=== PATIENT | female | born 1950 | race Caucasian/White ===

== ENCOUNTER 2019-10-22 06:05 | Day surgery (SDC) | payer OTHER ==
[~2019-10-22] VITALS: Ht 160 cm; Wt 53.1 kg
[~2019-10-22 06:05] MED LIST: DOXYCYCLINE HY200 MG PO; EVISTA60 MG PO; ZOCOR20 MG PO
[2019-10-22 07:50] VITALS: BP 128/63
--- NOTE | 2019-10-23 13:07 | PATH ---
[facility] [address] [address] PATHOLOGY RPT PROCEDURE Name: ROHINI OTTO Room #: DEP [facility] M.R.#: [id number] Admission: 10/22/19 Date of : 50 Discharge: 10/22/19 Report #: [id number] Path Case #: [id number] [facility] Accession Number: [id number] . 01 Material submitted: . canthus - LESION RIGHT MEDIAL CANTHUS. Modifiers: right, medial . 01 Clinical history: . None provided. . 02 Diagnosis: Skin, "right upper eyelid", biopsy: - Seborrheic keratosis with moderate chronic inflammation. (JENNIFER:alexandra; 10/23/2019) [facility] 10/23/2019 1148 Local . 02 Electronically signed: . Nadir Stein MD, Pathologist NPI- [id number] . 01 Gross description: . Received in formalin labeled "Rohini Otto, lesion right medial canthus" are two irregular fragments of collins-white possible skin measuring 0.5 x 0.2 x 0.1 cm and 0.7 x 0.2 x 0.2 cm. The resection margins are inked entirely black and the specimen is submitted without sectioning in cassette A1. ([facility]; 10/22/2019) [facility] 10/22/2019 1631 Local . 02 Pathologist provided ICD-10: L82.0 . 02 CPT . 482783 Specimen Comment: A courtesy copy of this report has been sent to [phone] Specimen Comment: [phone] Specimen Comment: Report sent to / DR MADRIGAL Performed at: [address], [place] [id number] MD Bo Trammell MD Phone: [phone] Performed at: [address] [id number] MD Latisha Manning MD Phone: [phone]
--- NOTE | 2019-10-26 06:18 | O ---
[address] [place] [address] OPERATIVE REPORT Name: ROHINI RODRIGEZ Room #: DEP [facility]..#: [id number] Admission: 10/22/19 Attend Phys: Jordi Muniz MD Discharge: 10/22/19 Date of : 50 Report #: [id number] THIS REPORT FOR: //name// CC: Dr. 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 PROCEDURE: Excision of lesion of the right upper lid and medial canthus with flap repair of defect, nasolacrimal silicone intubation with nasal surgical video endoscopy. SURGEON: Jordi Muniz MD DIRECTOR MANUFACTURING ENGINEERING: None. ANESTHESIA: General. COMPLICATIONS: None. 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 She presents today for excision of this lesion with repair of that defect along with cannulization of her lacrimal outflow tract with silicone tubing in order to reduce her risk for chronic irreversible epiphora. Informed consent was obtained to include but not limited to the potential risk for loss of vision, bleeding, infection, failure to improve the problem, the potential need for further surgery or treatment including the possibility of recurrence of the lesion. DESCRIPTION OF PROCEDURE: The patient was taken to the operating room where general anesthesia was administered. The right medial canthal area in addition to the right upper lid and the right lateral wall of the nose were anesthetized with Xylocaine with epinephrine mixed with Marcaine and Wydase. The patient then had the right side of the nose was packed with Afrin-soaked cottonoids. She was subsequently prepped and draped in the usual sterile fashion. The right upper lid was then inspected and the lesion visualized. Incisions [address] [address] OPERATIVE REPORT Name: ROHINI RODRIGEZ Room #: DEP [facility] M.R.#: [id number] Admission: 10/22/19 Attend Phys: Jordi Muniz MD Discharge: 10/22/19 Date of : 50 Report #: [id number] were then made around the base of the lesion and it was dissected free from the underlying orbicularis muscle. The lesion had a bipedal appearance with 2 separate sites. Both sites were excised and tissue submitted for pathology. The defect was then undermined sufficiently to allow a myocutaneous flap to be developed. Hemostasis was then re-achieved. The flap was then advanced and secured with interrupted 6-0 plain gut sutures attempting to minimize the risk for the patient to have medial canthal webbing. The superior and inferior puncta were then dilated with a punctum dilator. A Yung tube was then passed through the superior canalicular system and down the nasolacrimal duct into the nose. The cottonoids were removed and the video endoscope was used to visualize the nasal vault. No significant intranasal pathology was seen. The Yung hook was then used to grasp the Yung tube under the inferior turbinate as it was then withdrawn from the nares. The inferior system was similarly cannulated. The Yung tubes were then secured to themselves with 3 square throws and then to the lateral wall of the nose with one 5-0 Prolene suture. The eye wound was then dressed with erythromycin ophthalmic ointment. The patient subsequently transported to the recovery area, having tolerated the procedures well with no anesthetic or operative complications being noted. <ELECTRONICALLY SIGNED> By: Jordi Muniz MD 10/26/1918 0818 0927 Jordi Muniz MD /nt
== END 2019-10-22 09:00 | disposition home or self-care (01) ==
LOC: OR 06:05 → TBA 06:05 → OR 09:00
DX: L82.0 Inflamed seborrheic keratosis (principal); H01.8 Other specified inflammations of eyelid; H04.551 Acquired stenosis of right nasolacrimal duct; Z98.41 Cataract extraction status, right eye; Z98.42 Cataract extraction status, left eye; Z87.891 Personal history of nicotine dependence; Z98.890 Other specified postprocedural states; Z79.899 Other long term (current) drug therapy; Z88.0 Allergy status to penicillin; Z88.8 Allergy status to other drugs, medicaments and biological substances
CPT/HCPCS: 50010; 50101; 50386; 50398; 51636; 51777; 56528; 56531; 62110; 62900; 64037; 70005